=== PATIENT | male | born 1965 | race Two or more races ===

== ENCOUNTER 2017-02-15 16:50 | Emergency (ER) | payer SELFPAY ==
[~2017-02-15] VITALS: Ht 165.1 cm; Wt 69.6 kg
[2017-02-15 16:52] VITALS: BP 133/74
[2017-02-15] MEDS ORDERED: FLUORESCEIN OPHTHALMIC 1 MG STRIP ONE (17:12)
[2017-02-15] MEDS ORDERED: PROPARACAINE OPHTH 0.5%, 15ML ONE (17:12)
[2017-02-15] MEDS ORDERED: FLUORESCEIN OPHTHALMIC 1 MG STRIP EACHEYE ONE (17:30)
[2017-02-15] MEDS ORDERED: PROPARACAINE OPHTH 0.5%, 15ML EACHEYE ONE (17:30)
== END 2017-02-15 17:28 | disposition home or self-care (01) ==
LOC: ED 17:22
DX: H11.32 Conjunctival hemorrhage, left eye (principal); E11.9 Type 2 diabetes mellitus without complications
CPT/HCPCS: 99283